=== PATIENT | female | born 1980 | race Asian ===

== ENCOUNTER 2019-09-15 11:26 | Emergency (ER) | payer OTHER ==
[~2019-09-15] VITALS: Ht 170.2 cm; Wt 56.3 kg
[2019-09-15 12:34] VITALS: BP 111/78; TEMP 97.7
== END 2019-09-15 12:37 | disposition home or self-care (01) ==
LOC: ED 11:26
DX: Z00.00 Encounter for general adult medical examination without abnormal findings (principal)
CPT/HCPCS: 99281